=== PATIENT | male | born 1965 | race Asian ===

== ENCOUNTER 2021-10-22 17:40 | Emergency (ER) | payer MEDICAID ==
[~2021-10-22] VITALS: Ht 170.2 cm; Wt 81.2 kg
--- NOTE | 2021-10-22 17:50 | NUR ---
Dr Christensen at the bedside for MSE.
[2021-10-22] MEDS ORDERED: NAPR-1192 PO (18:23)
--- NOTE | 2021-10-22 18:55 | NUR ---
Patient discharged to home in stable condition. Written and verbal after care instructions given. Patient verbalizes understanding of instructions. Stressed follow up or return to ER for worsening s/s.
[2021-10-22 18:56] VITALS: BP 124/82
== END 2021-10-22 18:56 | disposition home or self-care (01) ==
LOC: ER 17:44
DX: S89.92XA Unspecified injury of left lower leg, initial encounter (principal); V18.9XXA Unspecified pedal cyclist injured in noncollision transport accident in traffic accident, initial encounter; Y93.55 Activity, bike riding; Y92.89 Other specified places as the place of occurrence of the external cause; M25.562 Pain in left knee
CPT/HCPCS: A4663